=== PATIENT | female | born 1970 | race Two or more races ===

== ENCOUNTER 2024-09-23 19:46 | Emergency (ER) | payer BC ==
[~2024-09-23] VITALS: Ht 170.2 cm; Wt 77.1 kg
[2024-09-23] MEDS ORDERED: UCERIS9 MG (20:10)
== END 2024-09-24 00:26 | disposition home or self-care (01) ==
LOC: ER 19:48
DX: S92.911A Unspecified fracture of right toe(s), initial encounter for closed fracture (principal)